=== PATIENT | male | born 2000 | race African-American/Black ===

== ENCOUNTER 2024-01-12 16:03 | Emergency (ER) | payer OTHER, SELFPAY ==
[2024-01-12 16:07] VITALS: BP 120/71; PULSE 79; RESP 18; TEMP 36.9; BMI 21.6
--- NOTE | 2024-01-12 17:10 | ED.ARRPALP ---
HPI - Arrhythmia/Palpitations General Chief Complaint: Arrhythmia/Palpitations Stated Complaint: heart palpitations Time Seen by Provider: 01/12/24 16:07 History of Present Illness HPI narrative: This 23-year-old male comes in reporting palpitations. He states that he has resumes school as a senior in college and prior to coming here he was [place] He did go into a clinic appointment and then was transferred into the ER for further evaluation. Everything returned clear in his workup. He did receive a prescription for metoprolol ER 25 mg. He states that he feels his heart pounding in a regular rhythm with exertion. He does state that he has anxiety and depression symptoms and is not taking any medicines for these things. He does not report any chest pain. Related Data Home Medications ?Medication ?Instructions ?Recorded ?Confirmed metoprolol succinate 25 mg capsule 25 mg PO DAILY 01/12/24 01/12/24 sprinkle, ext. release 24 hr Previous Rx's ?Medication ?Instructions ?Recorded escitalopram oxalate 10 mg tablet 10 mg PO DAILY #30 tabs 01/12/24 (Lexapro) lorazepam 0.5 mg tablet (Ativan) 0.5 mg PO BID PRN #6 tabs 01/12/24 propranolol 10 mg tablet 10 mg PO BID PRN #30 tabs 01/12/24 Allergies Allergy/AdvReac Type Severity Reaction Status Date / Time No Known Drug Allergies Allergy Verified 01/12/24 16:12 Review of Systems Status of ROS: Reports: 10 or more systems reviewed and unremarkable except as noted in History and below Narrative: Constitutional: No fevers, no weight gain or loss. Eyes: No discharge. No vision changes. HENT: No congestion, no sore throat, no ear pain. Cardiovascular: No chest pain. He reports palpitations as described above. Respiratory: No shortness of breath, no wheezes, no cough. Gastrointestinal: No abdominal pain, no vomiting, no diarrhea. Genitourinary: No dysuria, no hematuria. Musculoskeletal: Normal range of motion. Skin: No rashes, no pruritis. Neurological: No dizziness, weakness, sensory change, speech change. Endo/Heme/Allergies: No bruising or bleeding. No polydipsia. Pysch: no suicidality, no anxiety, no insomnia. All other systems reviewed and are negative. Exam Narrative: Exam Narrative: Constitutional: Well-developed, well-nourished, no acute distress. HEENT: Normocephalic, atraumatic. Neck: Normal range of motion. Nontender. Supple. Heart: Regular. No murmurs. Normal rate. Intact distal pulses. Lungs: Clear to auscultation. No chest discomfort. No wheezes, rhonchi, or rales. Abdomen: Normal bowel sounds. Nontender. No rebound tenderness. Genitalia: Deferred. Back: No midline tenderness. Normal range of motion. Extremities: Normal range of motion. No injury. Skin: Intact. No rash. Warm. No erythema or pallor. Neurologic: No altered sensation. No weakness. Alert and oriented. Psychiatric: No suicidality. No insomnia. Patient reports symptoms of depression with some anxiety. Nursing notes and vitals signs are reviewed. Const: Vital Signs, click to edit/add: Vital Signs - 24 hr 01/12/24 16:07 Temperature 98.5 F Pulse Rate [Right Pulse Oximeter] 79 Respiratory Rate 18 Blood Pressure [Ri ght Upper Arm] 120/71 Oxygen Delivery Me thod Room Air Course Vital Signs Vital signs: Initial Vital Signs Temperature 98.5 F 01/12/24 16:07 Temperature Source Temporal Artery Scan 01/12/24 16:07 Pulse Rate 79 01/12/24 16:07 Respiratory Rate 18 01/12/24 16:07 Blood Pressure 120/71 01/12/24 16:07 Blood Pressure Mean 87 01/12/24 16:07 Blood Pressure Position Sitting 01/12/24 16:07 Oxygen Delivery Method Room Air 01/12/24 16:07 Vital Signs Temperature 98.5 F 01/12/24 16:07 Pulse Rate 79 01/12/24 16:07 Respiratory Rate 18 01/12/24 16:07 Blood Pressure 120/71 01/12/24 16:07 Oxygen Delivery Method Room Air 01/12/24 16:07 Temperature 98.5 F 01/12/24 16:07 Pulse Rate 79 01/12/24 16:07 Respiratory Rate 18 01/12/24 16:07 Blood Pressure 120/71 01/12/24 16:07 Oxygen Delivery Method Room Air 01/12/24 16:07 MDM - Arrhythmia/Palpitations MDM Narrative Medical decision making narrative: This patient comes in reporting some palpitations. He is not feeling any symptoms currently. He has a normal EKG. His vital signs are also normal. I did discuss lab and imaging options with the patient and he declined these as he had this workup done a few weeks ago prior to coming back here for school. He does express interest in some treatment options for depression anxiety. I did recommend trying propranolol instead of metoprolol as it has some antianxiety benefit. A prescription for Lexapro is also provided. I did also discuss the role of a heart monitor such as a Zio patch. He declined any further studies at this point but is aware that these are options going forward. ECG Data Attestation: I personally reviewed and interpreted this ECG as follows: Interpretation: Normal sinus rhythm, rate is 79 beats per minute. There are no specific ST or T-wave abnormalities. There appears to be early repolarization. Discharge Plan Discharge Clinical Impression: Palpitations, Anxiety Patient Disposition: Home, Self-Care Condition: Stable Additional Instructions: Take medications as indicated. Follow up with MD in 2-3 weeks for re-evaluation. Return if worsening. Prescriptions: New lorazepam [Ativan] 0.5 mg tablet 0.5 mg PO BID PRNQty: 6 0RF escitalopram oxalate [Lexapro] 10 mg tablet 10 mg PO DAILY Qty: 30 2RF propranolol 10 mg tablet 10 mg PO BID PRNQty: 30 2RF No Action metoprolol succinate 25 mg capsule,sprinkle,ER 24hr 25 mg PO DAILY Stand Alone Forms: [employer] Info Instructions
== END 2024-01-12 18:06 | disposition home or self-care (01) ==
LOC: ED 17:53
PROVIDERS: Emergency Provider Emergency Medicine Emergency Medical Services
DX: R00.2 Palpitations (principal); F41.9 Anxiety disorder, unspecified
CPT/HCPCS: 99284

== ENCOUNTER 2024-06-20 01:35 | Outpatient (CLI) | payer OTHER, SELFPAY | END 2024-06-20 01:36 | disposition home or self-care (01) | LOC: AMB 06-21 09:50 | PROVIDERS: Visit Provider Family Medicine | DX: R45.851 Suicidal ideations (principal) | CPT/HCPCS: A0425; A0429 ==

== ENCOUNTER 2024-06-20 01:49 | Emergency (ER) | payer OTHER, SELFPAY ==
[2024-06-20 01:59] VITALS: BP 121/81; PULSE 57; RESP 18; TEMP 36.7; O2SAT 98; BMI 19.5
--- NOTE | 2024-06-20 02:30 | ED.NURSE ---
Pt changed into hospital scrubs, personal belongings placed in bag. Pt is calm and cooperative at this time.
--- NOTE | 2024-06-20 02:58 | ED_ITS ---
HPI - General Adult General Chief complaint: Psychiatric Problem/Disorder Stated complaint: Mental Health Time Seen by Provider: 06/20/24 01:54 Source: patient Mode of arrival: ambulatory Limitations: no limitations History of Present Illness HPI narrative: 24-year-old male presents to the emergency department with passive suicidal ideation. Started today. Has had intermittent issues with depression anxiety since high school, has worked with a counselor in the past. Not currently using any counseling services, no prior treatment with medication. No prior suicide attempt. Patient reports that he has been behind in his course work. 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 He is quite clear with her conversations that he is not very enthusiastic about the field and has not really made any plans for after graduation in terms of grad school, seeking employment, etc.. He certainly does not seem excited about his intended field. We discussed this further, he tells me he would prefer to be doing something in the entertainment industry. He started a [employer] in 2019, COVID of course hitting late in his freshman year. He went back home for a couple of years and tried to do some online courses. This was difficult for him and he admits that this was not happy time in his life. He has been back at campus since the fall. Reports that he was initially doing some counseling 1st trimester and did finish his courses. Things went pretty well academically. He says that he missed some messages for a senior group project in the last few weeks. When he realized this that he had been neglecting this task, he went to apologize to his adviser today. He confessed that he has been struggling with mental health issues. His advisor ultimately called [employer] security after their initial conversation and they brought the patient to the emergency department for evaluation for suicidal thoughts. He does admit to some financial stressors including loss of credit card debt because he has not been motivated to work lately. He does report that all of his basic needs are met in terms of housing, food availability, etc.. He reports that he is close with his older and younger sister and they are supportive. His parents do meet all of his basic needs. There are no major family medical or social stressors. No recent romantic relationship changes. He does report a history of palpitations and has propranolol p.r.n. for this. He has considered taking his propranolol tonight with the wonder if it would end his life but did not have an active plan to do so. Does not verbalize any active suicidal plan to me. No prior history of attempted overdose. No prior history of self injury. Does not use alcohol, does not use any drugs including even cannabis products. No stimulant use. No prior history of any other diagnoses besides depression and anxiety. Specifically no psychosis, ADHD, bipolar, etc.. No prior hospitalization for mental health. He is here voluntarily at this time. Feels overall hopeless regarding his future and continue with school. Feels overwhelmed at the thought of trying to catch up when he is so far behind. He reports that he has had workup for his palpitations including thyroid testing, basic blood work, etc. I would prefer not to repeat these today unless necessary. Reports that his past medical history is benign, no major long-term health problems. No recent major medical illness. His only medication is p.r.n. propranolol. No allergies. No listed drug use, smoking or abnormal habits. ROS is notable for the mental health issues, otherwise denies times 12 systems. Related Data Home Medications ?Medication ?Instructions ?Recorded ?Confirmed metoprolol succinate 25 mg capsule 25 mg PO DAILY 01/12/24 01/12/24 sprinkle, ext. release 24 hr ergocalciferol (vitamin D2) 1,250 1,250 mcg PO 06/20/24 mcg (50,000 unit) capsule Previous Rx's ?Medication ?Instructions ?Recorded escitalopram oxalate 10 mg tablet 10 mg PO DAILY #30 tabs 01/12/24 (Lexapro) lorazepam 0.5 mg tablet (Ativan) 0.5 mg PO BID PRN #6 tabs 01/12/24 propranolol 10 mg tablet 10 mg PO BID PRN #30 tabs 01/12/24 Allergies Allergy/AdvReac Type Severity Reaction Status Date / Time No Known Drug Allergies Allergy Verified 06/20/24 02:05 [facility] Social History Smoking Status: Never smoker Exam Const: Vital Signs, click to edit/add: Vital Signs - 24 hr 06/20/24 01:59 Temperature 98.1 F Pulse Rate [Right Pulse Oximeter] 57 L Respiratory Rate 18 Blood Pressure [Ri ght Upper Arm] 121/81 Pulse Oximetry 98 Oxygen Delivery Me thod Room Air Documenting provider has reviewed patient's vital signs: yes Common normals: alert General appearance: well kempt Other: Affect is a little flat but answers questions appropriately. Does seem to have good insight. Thought process is logical, well-organized. Articulate and intelligent. Gives slow but thoughtful answers. Well groomed, well nourished, well hydrated. HENMT: Common normals: normocephalic Head and scalp: normocephalic Face and sinus: normal facial exam Mouth: oral and palatal mucosa normal Eye: Common normals: conjunctivae normal General eye: normal appearance of both eyes Conjunctiva: conjunctiva(e) normal Neck & C-Spine: Common normals: full ROM, no lymphadenopathy and thyroid normal General: normal visual inspection Thyroid: thyroid normal Resp: Common normals: normal respiratory effort, no use of accessory muscles and clear to auscultation bilaterally Effort & inspection: able to speak in complete sentences Auscultation: clear to auscultation bilaterally Cardio: Common normals: regular rate, regular rhythm, S1 normal heart sound, S2 normal heart sound and no murmurs Rate: regular rate Rhythm: regular rhythm Heart sounds: S1 normal and S2 normal GI: Common normals: Normal to inspection, nondistended, normoactive bowel sounds present, soft to palpation, non-tender, no hepatosplenomegaly and no masses Palpation: soft and no hepatosplenomegaly Back & Pelvis: Common normals: thoracic and lumbar spine normal to inspection Extremity: Common normals: normal to inspection, normal capillary refill and no pedal edema Neuro: Sensorium/orientation: alert Speech: speech normal Motor exam: no tremor noted and no movement abnormalities noted Psych: Common normals: thought process normal Appearance: well kempt Attitude: engaged Activity/motor behavior: appropriate eye contact Mood and affect: depressed mood Thought process: normal thought process Thought content: suicidality Attention/concentration: attention grossly intact Memory/cognition: memory grossly intact Insight: fair Judgement: fair Skin: Common normals: no rashes or lesions noted Narrative: No signs of self injury or trauma. General skin exam: no rashes or lesions noted Course Course ED Course: 24-year-old male with passive suicidal thoughts and history of depression. Concern for suicide risk. Seems more situational and exacerbated by recent feeling of overwhelm regarding getting behind in course work and also lack of interest in current area of scholastic study. spoke with aleksandar from [facility]. She notes that he is depressed, down, slow to respond. No criteria for hold, no intent to harm. He feels safe with discharge. She reports that he told her that he is prescribed medications for his mental health, and does have access to mental health provider. He he can make contact with the provider and can arrange his own counseling. I agree with her assessment. Vital Signs Vital signs: Initial Vital Signs Temperature 98.1 F 06/20/24 01:59 Temperature Source Temporal Artery Scan 06/20/24 01:59 Pulse Rate 57 L 06/20/24 01:59 Pulse Rhythm Regular 06/20/24 01:59 Respiratory Rate 18 06/20/24 01:59 Blood Pressure 121/81 06/20/24 01:59 Blood Pressure Mean 94 06/20/24 01:59 Blood Pressure Position Supine 06/20/24 01:59 Pulse Oximetry 98 06/20/24 01:59 Oxygen Delivery Method Room Air 06/20/24 01:59 Vital Signs Temperature 98.1 F 06/20/24 01:59 Pulse Rate 57 L 06/20/24 01:59 Respiratory Rate 18 06/20/24 01:59 Blood Pressure 121/81 06/20/24 01:59 Pulse Oximetry 98 06/20/24 01:59 Oxygen Delivery Method Room Air 06/20/24 01:59 Temperature 98.1 F 06/20/24 01:59 Pulse Rate 57 L 06/20/24 01:59 Respiratory Rate 18 06/20/24 01:59 Blood Pressure 121/81 06/20/24 01:59 Pulse Oximetry 98 06/20/24 01:59 Oxygen Delivery Method Room Air 06/20/24 01:59 Discharge Plan Discharge Clinical Impression: Depression, Passive suicidal ideations Patient Disposition: Home w/ Parent or Adult Condition: Stable Instructions: Depression (ED), Suicide Prevention (ED) Additional Instructions: Thank you for speaking with the mental health audience coordinator today. At this time, you, she and I all agree that you would not benefit from inpatient hospitalization. In the daylight hours today, please contact your mental health prescriber and discuss your current symptoms. Adjustments to your medications may be helpful. I would encourage you to start counseling and make an appointme nt with your acted a stephen adviser to determine the best plan for this trimester. If your suicidal thoughts worsen, please return to the emergency department. In the interim, I would recommend that you focus on 7-8 hours of sleep per night, 30-40 minutes of exercise 3-5 days per week, structured healthy meals rather than snacks and making a point to spend at least 20 minutes outside every day. Shower daily and make a list of the things you need to accomplish to get back on track academically and work towards completion of this plan with the help of your advisor team. Continue taking your medications as prescribed for now. Activity Level: No Restrictions Discharge Diet: Regular Prescriptions: No Action metoprolol succinate 25 mg capsule,sprinkle,ER 24hr 25 mg PO DAILY lorazepam [Ativan] 0.5 mg tablet 0.5 mg PO BID PRNQty: 6 0RF escitalopram oxalate [Lexapro] 10 mg tablet 10 mg PO DAILY Qty: 30 2RF propranolol 10 mg tablet 10 mg PO BID PRNQty: 30 2RF ergocalciferol (vitamin D2) 1,250 mcg (50,000 unit) capsule 1,250 mcg PO Follow Up/Referrals: Provider,Not a Local [Primary Care Provider] - Stand Alone Forms: [email or web address] Info Instructions
== END 2024-06-20 03:44 | disposition home or self-care (01) ==
PROVIDERS: Emergency Provider Family Medicine
DX: F32.A Depression, unspecified (principal); R45.851 Suicidal ideations
CPT/HCPCS: 99283; Q3014